=== PATIENT | female | born 1985 | race Caucasian/White ===

== ENCOUNTER 2025-02-01 23:15 | Emergency (ER) | payer MEDICAID, SELFPAY ==
[2025-02-01 23:19] VITALS: BP 136/90; PULSE 62; TEMP 36.8; O2SAT 99; BMI 42.9
--- NOTE | 2025-02-01 23:43 | ED_ITS ---
HPI HPI - General Adult General Chief complaint: Recheck/Abnormal Lab/Rx Stated complaint: HIGH BLOOD PRESSURE Time Seen by Provider: 02/01/25 23:40 Source: patient Mode of arrival: walk-in Limitations: no limitations History of Present Illness HPI narrative: hypertension. Was seen at [facility] today and describes extensive workup including CT brain. States at ER her BP was elevated 150s. At home her BP was even higher. She was seen at [place] for migraine. She now is concern that she may not have had a migraine and that her BP was responsible for the headache. She came here for evaluation. No chest pain or palpitations. Asymptomatic at this time and BP 136/90 Related Data Home Medications ?Medication ?Instructions ?Recorded ?Confirmed No Known Home Medications 02/01/2504/20 Allergies Allergy/AdvReac Type Severity Reaction Status Date / Time No Known Drug Allergies Allergy Verified 02/01/25 23:35 Review of Systems ROS Status of ROS 10 or more systems reviewed and unremark able except as noted in history and below PFSH PFSH Social History Little interest or pleasure in doing things: not at all Feeling down, depressed, or hopeless: not at all Exam Constitutional Vital Signs, click to edit/add: Last Vital Signs Temp 98.2 F 02/01/25 23:19 Pulse 62 02/01/25 23:19 Resp 16 02/01/25 23:19 BP 136/90 02/01/25 23:19 Pulse Ox 99 02/01/25 23:19 O2 Del Method Room Air 02/01/25 23:19 Common normals: no apparent distress, average body habitus, oriented x3, no limitations, healthy appearing, alert and well nourished [facility] [place] Common normals: normocephalic and head/scalp atraumatic Eye Common normals: EOMs intact bilaterally and conjunctivae normal Respiratory Common normals: normal respiratory effort, no retractions, no use of accessory muscles and clear to auscultation bilaterally Cardio Common normals: regular rate, regular rhythm, S1 normal heart sound and S2 normal heart sound Extremity Common normals: normal to inspection and full ROM Neuro Common normals: oriented x3, CN's II-XII intact bilaterally, moves all extremities and no focal motor deficits Psych Appearance: grossly normal Course Vital Signs Vital signs: Vital Signs Temperature 98.2 F 02/01/25 23:19 Pulse Rate 62 02/01/25 23:19 Respiratory Rate 16 02/01/25 23:19 Blood Pressure 136/90 02/01/25 23:19 Pulse Oximetry 99 02/01/25 23:19 Oxygen Delivery Method Room Air 02/01/25 23:19 Temperature 98.2 F 02/01/25 23:19 Pulse Rate 62 02/01/25 23:19 Respiratory Rate 16 02/01/25 23:19 Blood Pressure 136/90 02/01/25 23:19 Pulse Oximetry 99 02/01/25 23:19 Oxygen Delivery Method Room Air 02/01/25 23:19 Medical Decision Making MDM Narrative Medical decision making narrative: patient presents for check of her BP . states it was elevated earlier today during her ER visit at [place] for her migraine. States tonight at home and was even higher and she came here. BP here WNL. Patient reassured and discharged. Advised to have her BP rechecked tomorrow Discharge Plan Discharge Chief Complaint: Recheck/Abnormal Lab/Rx Clinical Impression: Hypertension Patient Disposition: Home, Self-Care Prescriptions / Home Meds: No Action No Known Home Medications Print Language: Haitian Instructions: Hypertension (ED) Additional Instructions: have your blood pressure rechecked tomorrow Discharge Date/Time: 02/02/25 00:05
== END 2025-02-02 00:05 | disposition home or self-care (01) ==
LOC: ER 02-02 00:08
PROVIDERS: Emergency Provider Internal Medicine; PCP Student in an Organized Health Care Education/Training Program
DX: I10 Essential (primary) hypertension (principal)
CPT/HCPCS: 99282